=== PATIENT | male | born 2000 | race Caucasian/White ===

== ENCOUNTER 2023-04-28 14:37 | Emergency (ER) | payer OTHER, SELFPAY ==
[2023-04-28 14:54] VITALS: BP 147/81; PULSE 85; RESP 19; TEMP 36.6; O2SAT 98; BMI 30.7
--- NOTE | 2023-04-28 14:56 | ED.GENADULT ---
HPI - General Adult General Chief complaint: General Medical Stated complaint: sent for rabies vaccine Time Seen by Provider: 04/28/23 14:59 Source: patient Mode of arrival: ambulatory Limitations: no limitations History of Present Illness HPI narrative: 22-year-old male previously healthy here with concerns that he would need rabies vaccination. patient reports last evening a bat flew into the right side of his head. He is unsure if there was any bite or abrasions. Related Data Allergies Allergy/AdvReac Type Severity Reaction Status Date / Time latex [LATEX] Allergy Unknown RASH Verified 04/28/23 14:54 Review of Systems Review of Systems: Yes all other systems are reviewed and are negative Constitutional: Constitutional: Reports no additional constitutional complaints, Denies body ache(s), Denies chills, Denies fever(s), Denies headache(s) and Denies weakness Eyes: Eyes: Reports no additional eye complaints and Denies change in vision ENT: Reports system reviewed and no additional complaints, except as documented, Denies dizziness, Denies headache(s), Denies nasal congestion, Denies nasal discharge and Denies neck pain Cardiovascular: Cardiovascular: Reports no additional cardiovascular complaints, Denies chest pain, Denies leg edema and Denies dyspnea Respiratory: Respiratory: Reports no additional respiratory complaints, Denies cough and Denies dyspnea Gastrointestinal: Gastrointestinal: Reports no additional gastrointestinal complaints, Denies abdominal pain, Denies diarrhea, Denies nausea and Denies vomiting Genitourinary: Genitourinary: Denies urinary incontinence Musculoskeletal: Musculoskeletal: Reports no additional musculoskeletal complaints, Denies back pain, Denies arthralgias, Denies joint swelling, Denies neck pain, Denies numbness and Denies tingling Integumentary/Breasts: Skin/Breast: Reports system reviewed and no additional complaints, except as docu and Denies rash Neurologic: Reports system reviewed and no additional complaints, except as documented, Denies Abnormal speech present, Denies dizziness, Denies headache(s), Denies numbness, Denies tingling and Denies weakness PMFSH Past Medical History Attestation statement: The following information was validated with the patient. Source: old records reviewed and nursing notes reviewed Social History Social History Advance Directives: No Advance Directives Information Provided: No Physical Exam ED Vital Signs: Vital Signs - 24 hr 04/28/23 14:54 Temperature 98 F Pulse Rate 85 Respiratory Rate 19 Blood Pressure 147/81 H Pulse Oximetry 98 Oxygen Delivery Method Room Air BMI result Body Mass Index 30.7 Const General: cooperative, healthy appearing, comfortable and no acute distress Orientation/consciousness: patient oriented x3 Limitations: no limitations HENMT Other: I combed through the patient's hair. I do not appreciate any abrasions or bite garcia at all Head: Yes normal to inspection Ears: hearing grossly normal bilaterally General nose exam: Normal external nose present Face and sinus: Yes normal facial exam Mouth: Normal oral and palatal mucosa present Throat: Yes posterior oropharynx normal Eyes General: appearance normal, both eyes and all related structures Pupils: Equal, round and reactive pupils present Neck Neck: Yes normal visual inspection Chest Chest palpation & inspection: normal inspection of the chest Resp Effort & Inspection: normal respiratory effort Auscultation: clear to auscultation bilaterally Cardio Rate: regular rate Rhythm: regular rhythm Peripheral pulses: Peripheral pulses 2+ throughout GI Inspection: Yes normal to inspection Palpation (GI): Soft to palpation and nontender Auscultation: normal bowel sounds Back/Spine/Pelvis Thoracic/Lumbar Spine: thoracic and lumbar spine normal to inspection Skin General skin exam: no rashes or lesions noted Neuro General: patient oriented x3, no focal motor deficits and normal sensation to monofilament Cranial nerves: Yes Equal, round and reactive pupils present Cognition (Neuro): normal cognition Speech: No Abnormal speech present Gait exam (Neuro): Normal gait present Motor exam (neuro): 5/5 motor strength present throughout Extrem General: Yes normal to inspection Course Course Course Narrative: RME - 22 yo male presents for initiation of rabies series. Last night around 8pm a bat flew into the right side of his head. No open wounds or visible bites. PCP recommended he come to the ER for rabies vaccine. Plan: rabies vax and immuneglobulin Medications Administered Discontinued Medications Generic Name Dose Route Start Last Admin Trade Name Freq PRN Reason Stop Dose Admin Rabies Immune Globulin 2,000 unit 04/28/23 14:57 04/28/23 15:13 Rabies Immune Globulin/Pf 900 Unit/3 Ml Vial 20 unit/kg (2000 unit) 04/28/23 14:58 2,000 unit IM Administration ONCE ONE Rabies Vaccine Human Diploid Cell 1 ml 04/28/23 14:57 04/28/23 15:14 Rabies Vaccine, Human Diploid (Imovax) 1 Ml Vial IM 04/28/23 14:58 1 ml .ONCE ONE Administration Medical Decision Making Medical Decision Making MDM Narrative: 22-year-old male previously healthy here with concerns that he would need rabies vaccination. patient reports last evening a bat flew into the right side of his head. He is unsure if there was any bite or abrasions. from triage the rabies vaccine and immunoglobulin were ordered Differential Diagnosis Differential Diagnoses: The differential diagnosis associated with the presentation includes rabies exposure Independent Historian Clinical information obtained from an independent historian. History obtained from or confirmed by: Friend Prescription Management I considered prescription management with: Antibiotic Discharge Plan Discharge Clinical Impression: Rabies Patient Disposition: Home, Self-Care Instructions: Rabies (ED) Additional Instructions: see the dosing schedule for your repeat vaccinations
--- NOTE | 2023-04-28 15:24 | PC.NURSE ---
pt medicated per SEP VIS provided for rabavert- rabies order set faxed to [facility] and Pharmacy- confirmations received, filed in blue binder
== END 2023-04-28 15:29 | disposition home or self-care (01) ==
PROVIDERS: Emergency Provider Emergency Medicine Emergency Medical Services; PCP Pediatrics
DX: Z20.3 Contact with and (suspected) exposure to rabies (principal)
CPT/HCPCS: 90375; 90471; 90675; 96372; 99282; 99284

== ENCOUNTER 2023-05-01 15:19 | Outpatient (REF) | payer OTHER, SELFPAY | END 2023-05-01 15:20 | disposition home or self-care (01) | LOC: HO.MDS 15:19 | PROVIDERS: Visit Provider Nurse Practitioner Family | DX: Z20.3 Contact with and (suspected) exposure to rabies (principal) | CPT/HCPCS: 90471; 90675 ==

== ENCOUNTER 2023-05-05 10:02 | Outpatient (REF) | payer OTHER, SELFPAY | END 2023-05-05 10:03 | disposition home or self-care (01) | LOC: HO.MDS 10:02 | PROVIDERS: PCP Pediatrics; Visit Provider Nurse Practitioner Family | DX: Z20.3 Contact with and (suspected) exposure to rabies (principal) | CPT/HCPCS: 90471; 90675 ==

== ENCOUNTER 2023-05-12 10:07 | Outpatient (REF) | payer OTHER, SELFPAY | END 2023-05-12 10:08 | disposition home or self-care (01) | LOC: HO.MDS 10:07 | PROVIDERS: Visit Provider Nurse Practitioner Family | DX: Z20.3 Contact with and (suspected) exposure to rabies (principal) | CPT/HCPCS: 90471; 90675 ==

== ENCOUNTER 2024-02-02 17:54 | Emergency (ER) | payer OTHER, SELFPAY ==
[2024-02-02 18:21] VITALS: BP 130/88; PULSE 87; RESP 18; TEMP 36.3; O2SAT 97; BMI 27.9
[2024-02-02 18:46] LABS: Basophils Percent Auto 0.4 % (0-2); Eosinophils Percent Auto 0.4 % (0-4); Hematocrit 44.5 % (42.0-52.0); Hemoglobin 16.4 g/dl (14.0-18.0); Imm Gran Abs Auto 0.07 X10*3/uL (0.00-0.03); Imm Gran Pct Auto 0.8 % (0.0-0.4); Lymphocytes Absolute Auto 1.8 X10*3/uL (1.2-4.9); Lymphocytes Percent Auto 20.1 % (20-40); MANUAL DIFF FLAG NO; Mean Corpuscular HGB Conc 36.9 g/dl (31.0-36.0); Mean Corpuscular Hemoglobin 31.1 pg (27.0-33.0); Mean Corpuscular Volume 84.3 fL (80.0-98.0); Mean Platelet Volume 9.2 fL (9.4-12.4); Monocytes Absolute Auto 0.7 X10*3/uL (0.1-1.2); Monocytes Percent Auto 7.5 % (2-11); Neutrophils Absolute Auto 6.4 x10*3/uL (2.0-8.3); Neutrophils Percent Auto 70.8 % (45-73); Platelet Count 362 X10*3/uL (160-400); Red Blood Count 5.28 X10*6/uL (4.60-5.80); Red Cell Distribution Width 12.7 % (11.0-16.0); White Blood Count 9.1 X10*3/uL (4.8-10.8)
[2024-02-02 19:03] LABS: Alanine Aminotransferase 53 U/L (0-40); Alkaline Phosphatase 60 U/L (39-117); Anion Gap 16 (12-20); Aspartate Amino Transferase 26 U/L (5-37); Bilirubin Direct 0.2 mg/dL (0.0-0.5); Bilirubin Total 0.6 mg/dL (0.0-1.0); Blood Urea Nitrogen 7 mg/dL (9-16); Calcium 10.4 mg/dL (8.4-10.2); Carbon Dioxide 27 mmol/L (22-29); Chloride 101 mmol/L (96-108); Creatinine Clr Calc Pharmacy 148.7; Estimated Glomerular Filt Rate > 60; Glucose Random 83 mg/dL (60-115); Lipase 13 U/L (8-78); Potassium 3.9 mmol/L (3.3-5.1); Sodium 140 mmol/L (135-145); Total Protein 7.7 g/dL (6.5-8.0)
--- NOTE | 2024-02-02 21:43 | ED_ITS ---
HPI - Abdominal Pain General Chief Complaint: Abdominal Pain Stated Complaint: Abdominal pain Time Seen by Provider: 02/02/24 21:27 Source: patient Mode of arrival: ambulatory Limitations: no limitations History of Present Illness ED Provider: Dr. Capri Miranda HPI narrative: Patient comes to the emergency room with several complaints, patient states that for several days he has been having diarrhea, has not taking any medication [id number]. Patient states that he feels a lump in the rectal area, does not hurt, does not itch, no rectal bleeding. Also complaining of anxiety. Patient states that he has been having abdominal pain intermittently. At this time patient has no abdominal pain at all, no nausea vomiting or diarrhea. Patient denies SI or HI Related Data Previous Rx's ?Medication ?Instructions ?Recorded hydroxyzine HCl 25 mg tablet 25 mg PO QID PRN nausea and 02/02/24 vomiting #20 tabs hyoscyamine sulfate 0.125 mg tablet 0.125 mg PO QID PRN dyspepsia #10 02/02/24 tabs loperamide 2 mg capsule (Imodium 2 mg PO Q4H PRN loose stool #20 02/02/24 A-D) caps Allergies Allergy/AdvReac Type Severity Reaction Status Date / Time latex [LATEX] Allergy Unknown RASH Verified 02/02/24 18:24 Review of Systems Review of Systems Constitutional : No Weight loss, No Fever, No Chills, No Night Sweats, No Fatigue, No Malaise ENT/Mouth : No Hearing loss, No Ear Pain, No Nasal Congestion, No Sinus Pain, No Hoarseness, No sore throat, No Rhinorrhea, No Swallowing Difficulty Eyes: No Eye Pain, No Swelling, No Redness, No Foreign Body, No Discharge, No Vision Changes Cardiovascular : No Chest Pain, No SOB, No Dyspnea on Exertion, No Orthopnea, No Edema, No Palpitations Respiratory : No Cough, No Sputum, No Wheezing, No Smoke Exposure, No Dyspnea Gastrointestinal : Denies nausea or vomiting, complaining of diarrhea, a small rectal lump Genitourinary : no irregular bleeding, No Dysuria, No Urinary Frequency, No Hematuria, No Urinary Incontinence, No Urgency, No Flank Pain, No Urinary Flow Changes, No Hesitancy Musculoskeletal : No joint pain, No Myalgias, No Joint Swelling Skin : No Skin Lesions, No rash Neuro : No Weakness, No Numbness, No Paresthesias, No Loss of Consciousness, No Dizziness, No Headache Psych : Complaining of anxiety, No Depression, No SI/HI/AH/VH, No Social Issues, Heme/Lymph: No Bruising, No Bleeding,No Lymphadenopathy Endocrine : No Polyuria, No Polydipsia, No Temperature Intolerance [facility] Past Medical History Medical History (Updated 02/02/24 @ 21:47 by Capri Miranda MD) Anxiety Social History Social History Advance Directives: No Advance Directives Information Provided: No Do you have a plan to hurt others: No Plan Physical Exam ED Vital Signs: Vital Signs - 24 hr 02/02/24 18:21 Temperature 97.3 F Pulse Rate 87 Respiratory Rate 18 Blood Pressure 130/88 Pulse Oximetry 97 Oxygen Delivery Method Room Air BMI result Body Mass Index 27.9 Const Other: Appearance: Alert. Oriented X3. No acute distress. Eyes: Pupils equal, round and reactive to light. ENT: Pharynx normal. Neck: Normal inspection. Neck supple. No lymph nodes noted. No crepitus CVS: Normal heart rate and rhythm. Pulses normal. Normal S1 and S2 Respiratory: No respiratory distress. Breath sounds normal. No Wheezing. No rales Abdomen: Soft and nontender. No rigidity. No distention. No rebound, no guarding. Rectal exam: No internal or external hemorrhoids, no palpated lump Skin: Skin warm and dry. Normal skin color. Normal skin turgor. Extremities: No lower extremity edema. No Lacerations. No Rash Neuro: Oriented X 3. No motor deficit. No sensory deficit. Moving all extremities. No slurred speech. CN 2 through 12 grossly intact Psych: calm, cooperative, normal affect Medical Decision Making Medical Decision Making [facility] Narrative: -my interpretation of labs: Normal hematology chemistry, normal LFTs and lipase. -physical exam is normal. -vitals stable, patient feels well to go home. Differential Diagnosis Differential Diagnoses: The differential diagnosis associated with the presentation includes (Gastritis, enteritis, hemorrhoids, anxiety) Lab Data [facility] Lab Attestation statement: I reviewed the patient's lab results. 02/02/24 18:39 02/02/24 18:39 Labs: Lab Results 02/02/24 Range/Units 18:39 WBC 9.1 (4.8-10.8) X10*3/uL RBC 5.28 (4.60-5.80) X10*6/uL Hgb 16.4 (14.0-18.0) g/dl Hct 44.5 (42.0-52.0) % MCV 84.3 (80.0-98.0) fL MCH 31.1 (27.0-33.0) pg MCHC 36.9 H (31.0-36.0) g/dl RDW 12.7 (11.0-16.0) % Plt Count 362 (160-400) X10*3/uL MPV 9.2 L (9.4-12.4) fL Immature Gran % (Auto) 0.8 H (0.0-0.4) % Neut % (Auto) 70.8 (45-73) % Lymph % (Auto) 20.1 (20-40) % [place] % (Auto) 7.5 (2-11) % Eos % (Auto) 0.4 (0-4) % Baso % (Auto) 0.4 (0-2) % Lymph # (Auto) 1.8 (1.2-4.9) X10*3/uL [place] # (Auto) 0.7 (0.1-1.2) X10*3/uL Eos # (Auto) 0.0 (0.0-0.4) X10*3/uL Baso # (Auto) 0.0 (0.0-0.2) X10*3/uL Abs Immat Gran (auto) 0.07 H (0.00-0.03) X10*3/uL Absolute Neuts (auto) 6.4 (2.0-8.3) x10*3/uL Absolute Nucleated RBC 0.000 (0.0-0.012) X10*3/uL Nucleated RBC % (auto) 0.0 (0.0-0.2) /100WBC Sodium 140 (135-145) mmol/L Potassium 3.9 (3.3-5.1) mmol/L Chloride 101 (96-108) mmol/L Carbon Dioxide 27 (22-29) mmol/L Anion Gap 16 (12-20) BUN 7 L (9-16) mg/dL Creatinine 0.89 (0.5-1.4) mg/dL Estim Creat Clear Calc 148.7 Estimated GFR > 60 Random Glucose 83 (60-115) mg/dL Calcium 10.4 H (8.4-10.2) mg/dL Total Bilirubin 0.6 (0.0-1.0) mg/dL Direct Bilirubin 0.2 (0.0-0.5) mg/dL AST 26 (5-37) U/L ALT 53 H (0-40) U/L Alkaline Phosphatase 60 (39-117) U/L Total Protein 7.7 (6.5-8.0) g/dL Albumin 5.0 (3.5-5.0) g/dL Lipase 13 (8-78) U/L Discharge Plan Discharge Clinical Impression: Enteritis, Anxiety Patient Disposition: Home, Self-Care Instructions: Acute Diarrhea (ED), Anxiety (ED) Additional Instructions: Please follow-up with your primary care physician tomorrow. If you have any worsening or new symptoms, please return to the emergency room or call 911 Prescriptions: New loperamide [Imodium A-D] 2 mg capsule 2 mg PO Q4H PRN (Reason: loose stool) Qty: 20 0RF Rx Instructions: administer after each loose stool until symptoms controlled; do not exceed 8 mg per 24 hrs hyoscyamine sulfate 0.125 mg tablet 0.125 mg PO QID PRN (Reason: dyspepsia) Qty: 10 0RF hydroxyzine HCl 25 mg tablet 25 mg PO QID PRN (Reason: nausea and vomiting) Qty: 20 0RF Rx Instructions: P.r.n. anxiety Print Language: Montenegrin
[2024-02-02] MEDS: Loperamide HCl 2 MG CAPSULE 4 MG PO (22:07)
[2024-02-02 22:08] VITALS: BP 126/79; PULSE 73; RESP 18; TEMP 36.9; O2SAT 96
[2024-02-02 22:20] VITALS: BP 126/79; PULSE 73; RESP 18; TEMP 36.9; O2SAT 96
== END 2024-02-02 22:20 | disposition home or self-care (01) ==
PROVIDERS: Emergency Provider Emergency Medicine; PCP Pediatrics
DX: K52.9 Noninfective gastroenteritis and colitis, unspecified (principal); F41.9 Anxiety disorder, unspecified
CPT/HCPCS: 36415; 80048; 80076; 83690; 85025; 99283

== ENCOUNTER 2024-02-06 13:29 | Emergency (ER) | payer OTHER, SELFPAY | END 2024-02-06 14:34 | disposition left against medical advice (07) | PROVIDERS: Emergency Provider Emergency Medicine | DX: F41.9 Anxiety disorder, unspecified (principal); Z53.21 Procedure and treatment not carried out due to patient leaving prior to being seen by health care provider ==

== ENCOUNTER 2025-04-20 22:29 | Emergency (ER) | payer OTHER, SELFPAY ==
--- NOTE | ~2025-04-20 | XR_ITS ---
CLINICAL HISTORY: pain constipation 1 view abdomen Comparison: None provided Findings: No pneumoperitoneum or pneumatosis. Mild diffuse fecal retention. No abnormal calcifications. No acute fractures. IMPRESSION: Mild diffuse fecal retention. No small bowel obstruction or free air. This document has been electronically signed by: Wyatt Mckeon MD on 04/21/2025 07:44:31
[2025-04-20 22:32] VITALS: BP 130/80; PULSE 90; O2SAT 10
[2025-04-20 22:40] VITALS: BP 132/65; PULSE 80; RESP 16; TEMP 36.8; O2SAT 97; BMI 27.8
[2025-04-20 22:56] LABS: MANUAL DIFF FLAG NO
[2025-04-20 22:58] LABS: Hematocrit 38.3 % (42.0-52.0); Hemoglobin 13.8 g/dl (14.0-18.0); Imm Gran Abs Auto 0.02 X10*3/uL (0.00-0.03); Imm Gran Pct Auto 0.2 % (0.0-0.4); Lymphocytes Absolute Auto 2.6 X10*3/uL (1.2-4.9); Mean Corpuscular HGB Conc 36.0 g/dl (31.0-36.0); Mean Corpuscular Hemoglobin 30.5 pg (27.0-33.0); Mean Corpuscular Volume 84.7 fL (80.0-98.0); NRBC Abs Auto 0.000 X10*3/uL (0.0-0.012); NRBC Pct Auto 0.0 /100WBC (0.0-0.2); Platelet Count 252 X10*3/uL (160-400); Red Blood Count 4.52 X10*6/uL (4.60-5.80); White Blood Count 9.2 X10*3/uL (4.8-10.8)
[2025-04-20 23:11] LABS: Alanine Aminotransferase 33 U/L (0-40); Albumin Level 4.8 g/dL (3.5-5.0); Alkaline Phosphatase 62 U/L (39-117); Anion Gap 16 (12-20); Aspartate Amino Transferase 22 U/L (5-37); Blood Urea Nitrogen 11 mg/dL (9-16); Calcium 9.3 mg/dL (8.4-10.2); Carbon Dioxide 29 mmol/L (22-29); Chloride 104 mmol/L (96-108); Creatinine Clr Calc Pharmacy 134.7; Estimated Glomerular Filt Rate > 60; Lipase 15 U/L (8-78); Potassium 3.9 mmol/L (3.3-5.1); Sodium 145 mmol/L (135-145); Total Protein 6.8 g/dL (6.5-8.0)
--- NOTE | 2025-04-21 02:42 | PC.NURSE ---
assumed care of pt, pt states he has had lower abd pain for several hours, 01/29. Pt states it is worse then any typical IBS px he has felt in the pat. did not tae any medications tonight and is no ton any regular medication for any GI issues. he is under the care of a GI Dr. for his IBS. Mom at bedside. denies fevers, n/v/d. regular bm and urine output per pt.
[2025-04-21 02:49] VITALS: BP 121/73; PULSE 72; RESP 18; TEMP 36.8; O2SAT 99
--- OUTSIDE RECORDS SUMMARY | 2025-04-21 02:59 | XMS_ITS | Clinical Summary ---
Author Organization [facility] Address [address] [address] Phone Care Team Providers Care Salesperson [employer] Name Role Phone Johanny Peters MD, PhD Unavailable [phone] Rommel Rose MD Primary Care Provider Allergies No known active allergies Medications lactobacillus rhamnosus, GG, (CULTURELLE) 10 billion cell capsuleIndicatio ns:Irritable bowel syndrome with both constipation and diarrhea,Failure to thrive in child or adolescent Take 1 capsule by mouth daily. 30 capsule 9 Active citalopram (CELEXA) 20 MG tablet Take 20 mg by mouth daily. Active multivitamin-Ca- iron-minerals 27-0.4 mg TabIndications:I rritable bowel syndrome with both constipation and diarrhea Take 1 tablet by mouth daily. 30 each 3 0 Active meclizine (ANTIVERT) 25 mg tablet Take 1 tablet (25 mg total) by mouth 3 (three) times a day as needed for dizziness. 20 tablet 1 Active Additional Information Patient not taking.Reported on 07/02/2023 Active Problems Problem Noted Date Diagnosed Date Vertigo 05/14/2021 Assessment & Plan (05/14/2021 1:25 AM EDT): He does not have any nystagmus currently, but feels off with heavy extremities. This may be related to medications given in the emergency department. ED discussed the case with neurology who felt that evaluation for posterior stroke or this being a herald symptom of MS would be warranted and suggested observation for MRI. Other possibility is that there are case reports of HLA-B27 and M ni re's disease. He has no hearing issues. We will treat presumptively for a stroke at this time with aspirin, atorvastatin. We will monitor him on telemetry and obtain MRI in the morning with gadolinium. We will obtain an echocardiogram with bubble study. 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 Family history of Rangel's esophagus 12/26/2018 Irritable bowel syndrome wit h both constipation and diarrhea 09/10/2018 Resolved Problems Problem Noted Date Diagnosed Date Resolved Date Worm 08/01/2019 05/14/2021 Epigastric pain 12/09/2018 05/14/2021 Chest pain 12/09/2018 05/14/2021 Failure to thrive in child or adolescent 09/10/2018 05/14/2021 Constipation 07/03/2018 05/14/2021 Malnutrition 06/02/2018 05/14/2021 Abdominal pain 05/29/2018 05/14/2021 Diarrhea 05/29/2018 05/14/2021 Family History Medical History Relation Comments Diabetes Father Heart failure Father Autism spectrum disorder Half-Brother HLA-B27 positive Mother Neurological disorder Mother Question of MS vs Fibromyalgia Relation Status Comments Father Half-Brother Alive Mother Alive Social History Tobacco Use Types Packs/Day Years Used Date Smoking Tobacco: Never Smokeless Tobacco: Never Tobacco Cessation:Counseling Given: Not Answered Alcohol Use Standard Drinks/Week Comments Never 0 (1 standard drink = 0.6 oz pur e alcohol) Education Answer Date Recorded Are you interested in more education? Not on alfonso e 11/17/2022 Are you concerned about learning? Not on file 11/17/2022 No 11/17/2022 No 11/17/2022 Digital Access Answer Date Recorded No 12/18/2022 No 12/18/2022 Reliable internet access at home? Not on file 12/18/2022 Device with a working camera? Not on file Sex and Gender Information Value Date Recorded Sex Assigned at Male 09/14/2019 11:42 AM EST Legal Sex Male 8:46 PM EDT Gender Identity Male 09/14/2019 11:42 AM EST Sexual Orientation Not on file Occupation Industry Job Start Date Job End Date [employer] Not on file Not on file Not on file Last Filed Vital Signs Vital Sign Reading Time Taken Comments Blood Pressure 126/80 07/02/2023 6:45 PM EST Pulse 89 07/02/2023 6:45 PM EST Temperature 36.3 C (97.3 F) 07/02/2023 6:45 PM EST Respiratory Rate 20 07/02/2023 6:45 PM EST Oxygen Saturation 97% 07/02/2023 6:45 PM EST Inhaled Oxygen Concentration - - Weight 99.8 kg (220 lb) 07/02/2023 6:45 PM EST Height 180.3 cm (5' 11 ) 07/02/2023 6:45 PM EST Body Mass Index 30.68 07/02/2023 6:45 PM EST Plan of Treatment Health Maintenance Due Date Last Done Comments DEPRESSION SCREENING 2012 SMOKING Hx and SMOKELESS TOBACCO SCREENING 2013 HEPATITIS C SCREENING 2018 INFLUENZA VACCINE (#1) 2025 , 08/01/2019, 07/29/2018 COVID-19 VACCINE (2 - 2024-2 6 season) 2025 11/07/2021 Adult Td,Tdap Booster 05/07/2033 05/07/2023 HPV VACCINES Completed 03/12/2017, 09/12/2016, 07/11/2016 MENINGOCOCCAL VACCINES (ACWY) Completed 07/09/2017 HIV ONE-TIME SCREENING (18-6 5 YEARS) Completed 11/11/2020 HEPATITIS A VACCINES Aged Out 05/07/2023, 08/01/2019 No longer eligible based on patient's age to complete this topic HIB VACCINES Aged Out No longer eligi ble based on patient's age to complete this topic MENINGOCOCCAL VACCINES (B) Aged Out N o longer eligible based on patient's age to complete this topic PNEUMOCOCCAL VACCINES (0-49 years) Aged Out No longer eligible b ased on patient's age to complete this topic Medical Devices Not on file [place] [address] [address] [place] [address] [employer] [place] [address] [place] [address] [employer] ACO ACO Advance Directives For more information, please contact: [phone] (9AM - 5PM [place], Sunday-Sunday) * Full Code (Latest Code Status on File) Date Activated Date Inactivated Comments 05/14/2021 1:48 AM Question Answer Comments Code Status Confirmed With: Patient Care Teams Salesperson [employer] Relationship Specialty Start Date End Date Rommel Rose MD [address] [place] [address], [facility] [address] [place] [address] [email or web address] PCP - General Pediatrics 07/02/23 Johanny Peters MD, PhD [email or web address] Pediatric Rheumatology 07/08/18 Additional Source Comments The information contained in this document represents components of the legal health record. It is not the complete legal health record.[facility]
--- OUTSIDE RECORDS SUMMARY | 2025-04-21 02:59 | XMS_ITS | Encounter Summary ---
Author Organization [facility] Address [address] [place] [address] [place] [phone] Phone Care Team Providers Care Therapist Name Role Phone Johanny Peters MD, PhD Unavailable [phone] Rommel Rose MD Primary Care Provider [phone] Rommel Rose MD Primary Care Provider [phone] Encounter Details Date Type Department Care Team (Late st Contact Info) Description 05/14/2021 Procedure Pass [address] [id number] Social History Tobacco Use Types Packs/Day Years Used Date Smoking Tobacco: Never Smokeless Tobacco: Never Alcohol Use Standard Drinks/Week Comments Never 0 (1 standard drink = 0.6 oz pur e alcohol) Sex and Gender Information Value Date Recorded Sex Assigned at Male 09/14/2019 11:42 AM EST Legal Sex Male 8:46 PM EDT Gender Identity Male 09/14/2019 11:42 AM EST Sexual Orientation Not on file Occupation Industry Job Start Date Job End Date [employer] Not on file Not on file Not on file documented as of this encounter Plan of Treatment Not on file documented as of this encounter Visit Diagnoses Not on filedocumented in this encounter Care Teams Therapist Relationship Specialty Start Date End Date Rommel Rose MD [address] [place] [address] [address] [place] [address] [email or web address] PCP - General Pediatrics 09/10/18 07/01/23 Rommel Rose MD [address] [place] [address] [address] [place] [address] [email or web address] PCP - General Pediatrics 07/02/23 Johanny Peters MD, PhD [email or web address] Pediatric Rheumatology 07/08/18 documented as of this encounter Additional Source Comments The information contained in this document represents components of the legal health record. It is not the complete legal health record.[facility]
--- OUTSIDE RECORDS SUMMARY | 2025-04-21 02:59 | XMS_ITS | Encounter Summary ---
Author Organization [facility] Address [address] [employer] [place] [address] [place] [address] Phone Care Team Providers Care Line Welder Name Role Phone Rommel Rose MD Primary Care Provider Johanny Peters MD, PhD Primary Care Provider + Rommel Rose MD Primary Care Provider Johanny Peters MD, PhD Unavailable [phone] Kelly Dash MD Primary Care Provider [phone] Rommel Rose MD Primary Care Provider Rommel Rose MD Primary Care Provider Encounter Details Date Type Department Care Team (Late st Contact Info) Description 07/09/2017 Ancillary Orders [facility], X-Ray - [address] [place] [address] Rommel Rose MD [address] [place] [address], [address] [place] [address] [email or web address] Low back pain without sciatica, unspecified back pain laterality, unspecified chronicity Social History Tobacco Use Types Packs/Day Years Used Date Smoking Tobacco: Never Assessed Sex and Gender Information Value Date Recorded Sex Assigned at Male 09/14/2019 11:42 AM EST Legal Sex Male 8:46 PM EDT Gender Identity Male 09/14/2019 11:42 AM EST Sexual Orientation Not on file documented as of this encounter Plan of Treatment Not on file documented as of this encounter Results * XR LUMBOSACRAL SPINE 2-3 VIEWS (07/09/2017 4:20 PM EST) Anatomical Region Laterality Modality L-spine Radiographic Tessa ging 07/09/2017 5:49 PM EST Impressions 07/09/2017 6:21 PM EST Low normal disc heights. No evidence of spondylolisthesis or bony lesion. POS - [id number] Edited by: Alicia Watters on 07/09/2017 6:01 PM Narrative 07/09/2017 6:21 PM EST AP, lateral, and cone-down lateral views of the lumbar spine obtained. Disc heights are low normal throughout with perhaps mild disc height loss at L4- 5. No compression deformity. No spondylolisthesis. No bony lesions identified. Procedure Note Chano Cruz MD - 07/09/2017 AP, lateral, and cone-down lateral views of the lumbar spine obtained.Disc heights are low normal throughout with perhaps mild disc height lossat L4-5. No compression deformity. No spondylolisthesis. No bonylesions identified. IMPRESSION: Low normal disc heights. No evidence of spondylolisthesis or bonylesion. POS - [id number] Edited by: Alicia Watters on 07/09/2017 6:01 PM Rommel Rose MD IMG XR SPINE Final Resul t documented in this encounter Visit Diagnoses Diagnosis Low back pain without sciatica, unspecified back pain laterality, unspecified chronicity Low back pain without sciatica, unspecified back pain laterality, unspecified chronicity documented in this encounter Care Teams Line Welder Relationship Specialty Start Date End Date Rommel Rose MD [address] [place] [address] 2 [place] [address] [email or web address] PCP - General Pediatrics 07/09/17 11/29/17 Johanny Peters MD, PhD [address] [place] [address] [email or web address] PCP - General Pediatric Rheumatology 11/30/17 05/28/18 Rommel Rose MD [address] [place] [address] [email or web address] PCP - General Pediatrics 05/29/18 08/19/18 Kelly Dash MD [address] [place] [address] PCP - General Pediatrics 08/20/18 09/09/18 Rommel Rose MD [address] [place] [address] [email or web address] PCP - General Pediatrics 09/10/18 07/01/23 Rommel Rose MD [address] [place] [address] [email or web address] PCP - General Pediatrics 07/02/23 Johanny Peters MD, PhD [address] [place] [address] [email or web address] Pediatric [email or web address] 07/08/18 documented as of this encounter Additional Source Comments The information contained in this document represents components of the legal health record. It is not the complete legal health record.[facility]
--- OUTSIDE RECORDS SUMMARY | 2025-04-21 02:59 | XMS_ITS | Encounter Summary ---
Author Organization [facility] Address [address] [place] [address] Phone Care Team Providers Care Screw Machine Operator Name Role Phone Rommel Rose MD Primary Care Provider Johanny Peters MD, PhD Primary Care Provider + Rommel Rose MD Primary Care Provider Johanny Peters MD, PhD Unavailable Kelly Dash MD Primary Care Provider [phone] Rommel Rose MD Primary Care Provider Rommel Rose MD Primary Care Provider Encounter Details Date Type Department Care Team (Late st Contact Info) Description 07/09/2017 Transcribe Orders [address] [place] [address] Rommel Rose MD [address] [place] [address], [facility] 2 [place] [address] [email or web address] 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 Approximately 8% of the normal population carries the HLA-B27 antigen. HLA-B27 is present in approximately 89% of patients with ankylosing spondylitis, 79% of patients with Janet's syndrome and 42% of patients with juvenile rheumatoid arthritis. However, lacking other data, it is not diagnostic for these disorders. This test does not differentiate B27 alleles. i.e. B*27:05, B*27:06, etc. ADDITIONAL INFORMATION Method: Flow Cytometry Performing Laboratory CLIA# [id number] Blood 07/09/2017 4:50 PM EST 07/09/2017 4:55 PM EST Rommel Rose MD LAB BLOOD ORDERABLES Final Result [facility] DPT OF LAB MED AND PAT+ [address] [place] [address] * Sedimentation rate (ESR) (07/09/2017 4:50 PM EST) ESR 1 0 - 15 mm/h [facility] Blood 07/09/2017 4:50 PM EST 07/09/2017 4:56 PM EST Rommel Rose MD LAB BLOOD ORDERABLES Final Result [facility] [address] [place] [address] * Immunoglobulin A (07/09/2017 4:50 PM EST) IgA 89 61 - 348 mg/dL [facility] Blood 07/09/2017 4:50 PM EST 07/09/2017 4:56 PM EST Rommel Rose MD LAB BLOOD ORDERABLES Final Result Performing Organization Address City/[facility]/ZIP Co de Phone Number [facility] [address] [place] [address] * (ABNORMAL) Tissue transglutaminase IgA (07/09/2017 4:50 PM EST) Pathologist [facility] TTG IGA ANTIBODY 18.8(H) <4.0 (Negative) U/mL [facility] DPT OF LAB MED AND PAT+ Comment: (NOTE) Interpretation: Positive (>10.0) Blood 07/09/2017 4:50 PM EST 07/09/2017 4:55 PM EST Rommel Rose MD LAB BLOOD ORDERABLES Final Result [facility] DPT OF LAB MED AND PAT+ [address] [place] [address] * CBC and differential (07/09/2017 4:50 PM EST) [facility] WBC 5.21 3.40 - 11.20 K/uL [facility] RBC 4.84 4.50 - 5.50 M/uL [facility] HGB 14.9 13.0 - 17.0 g/dL [facility] HCT 41.8 40.0 - 51.0 % [facility] PLT 199 130 - 400 K/uL [facility] MCV 86.4 79.0 - 98.0 fL [facility] MCH 30.8 27.0 - 34.8 pg [facility] MCHC 35.6 31.5 - 36.0 g/dL [facility] RDW 13.0 10.8 - 14.6 % [facility] MPV 10.0 9.4 - 12.4 fl [facility] NRBC 0.00 /100 WBCs [facility] ABSOLUTE NRBC 0.00 K/uL [facility] DIFF METHOD Auto [facility] NEUTS 56.3 45.30 - 77.70 % [facility] LYMPHS 34.2 12.30 - 39.70 % [facility] MONOS 7.5 4.10 - 12.80 % [facility] EOS 1.2 0 - 7.2 % [facility] BASOS 0.8 0 - 2.80 % [facility] Granulocytes, immature (%) 0.0 0.0 - 0.9 % [facility] ABSOLUTE NEUTS 2.94 1.40 - 7.70 K/uL [facility] ABSOLUTE LYMPHS 1.78 0.60 - 3.20 K/uL [facility] ABSOLUTE MONOS 0.39 0.11 - 0.59 K/uL [facility] ABSOLUTE EOS 0.06 0.01 - 0.50 K/uL [facility] ABSOLUTE BASOS 0.04 0.00 - 0.08 K/uL [facility] Granulocytes, immature 0.00 0.00 - 0.05 K/uL [facility] Blood 07/09/2017 4:50 PM EST 07/09/2017 4:56 PM EST us Rommel Rose MD LAB BLOOD ORDERABLES Final Result Performing Organization Address City/State/[place] Co de Phone Number [facility] [address] [place] [address] * (ABNORMAL) Lipid panel (07/09/2017 4:50 PM EST) HDL 48 mg/dL [facility] Comment: Interpretation: Risk Level Males Decreased >45 mg/dL Average 40-45 mg/dL Increased <40 mg/dL CHOLESTEROL 98 0 - 169 mg/dL [facility] Comment: Pediatric Reference Ranges for 2 to 18 years Acceptable: Less than 170 mg/dL Borderline: 170 - 199 mg/dL High: Greater than or equal to 200 mg/dL TRIGLYCERIDES 35 30 - 160 mg/dL [facility] LDL 43(L) 50 - 129 mg/dL [facility] Comment: LDL levels in terms of risk for coronary heart disease: <100 mg/dL: Optimal 100-129 mg/dL: Near or above optimal 130-159 mg/dL: Borderline high 160-189 mg/dL: High >190 mg/dL: Very High CARDIAC RISK RATIO 2.0(L) 3.4 - 5.0 [facility] Blood 07/09/2017 4:50 PM EST 07/09/2017 4:56 PM EST us Rommel Rose MD LAB BLOOD ORDERABLES Final Result [facility] [address] [place] [address] documented in this encounter Visit Diagnoses Diagnosis Irritable bowel syndrome with both constipation and diarrhea- Primary documented in this encounter Care Teams Screw Machine Operator Relationship Specialty Start Date End Date Rommel Rose MD [address] [place] [address] [email or web address] PCP - General Pediatrics 07/09/17 11/29/17 Johanny Peters MD, PhD [address] [place] [address] [email or web address] PCP - General Pediatric Rheumatology 11/30/17 05/28/18 Rommel Rose MD [address] [place] [address] [email or web address] PCP - General Pediatrics 05/29/18 08/19/18 Kelly Dash MD [address] [place] [address] PCP - General Pediatrics 08/20/18 09/09/18 Rommel Rose MD [address] [place] [address] [email or web address] PCP - General Pediatrics 09/10/18 07/01/23 Rommel Rose MD [address] [place] [address] [email or web address] PCP - General Pediatrics 07/02/23 Johanny Peters MD, PhD [address] [place] [address] [email or web address] Pediatric Rheumatology 07/08/18 documented as of this encounter Additional Source Comments The information contained in this document represents components of the legal health record. It is not the complete legal health record.[facility]
--- OUTSIDE RECORDS SUMMARY | 2025-04-21 02:59 | XMS_ITS | Encounter Summary ---
Author Organization [facility] Address [address] [place] [address] [place] [address] Phone Care Team Providers Care Industry Analyst Name Role Phone Johanny Peters MD, PhD Unavailable [phone] Rommel Rose MD Primary Care Provider [phone] Rommel Rose MD Primary Care Provider [phone] Encounter Details Date Type Department Care Team (Late st Contact Info) Description 05/13/2021 Procedure Pass [facility], Ct Scan - [address] [address] Social History Tobacco Use Types Packs/Day Years [...] on file documented as of this encounter Functional Status * Calculated C-SSRS Risk Score (Lifetime/Recent) Answer Date of Assessment Author No Risk Indicated 05/13/2021 4:49 PM EDT Tavia Mclean, RN * [place]atz Suicide Severity Rating Scale (Screener/Recent Self-Report) Question Answer Date of Assessment Author 1. Wish to be (Past 1 Month) No 021 4:49 PM EDT Tavia Mclean, RN 2. Non-Specific Active Suici mariana Thoughts (Past 1 Month) No 05/13/2021 4:49 PM EDT Tavia Mclean, RN 6. Suicidal Behavior (Lifetime) No 4:49 PM EDT Tavia Mclean, RN documented as of this encounter Plan of Treatment Not on file documented as of this encounter Visit Diagnoses Not on filedocumented in this encounter Care Teams Industry Analyst Relationship Specialty Start Date End Date Rommel Rose MD [address] [place] [address] [email or web address] PCP - General Pediatrics 09/10/18 07/01/23 Rommel Rose MD [address] [place] [address] [email or web address] PCP - General Pediatrics 07/02/23 Johanny Peters MD, PhD [email or web address] Pediatric Rheumatology 07/08/18 documented as of this encounter Additional Source Comments The information contained in this document represents components of the legal health record. It is not the complete legal health record.[facility]
--- OUTSIDE RECORDS SUMMARY | 2025-04-21 02:59 | XMS_ITS | Encounter Summary ---
Author Organization [facility] Address [address] [place] [address] [place] [address] Phone Care Team Providers Care Supervisor Stripping Name Role Phone Johanny Peters MD, PhD Unavailable [phone] Rommel Rose MD Primary Care Provider [phone] Rommel Rose MD Primary Care Provider Encounter Details Date Type Department Care Team (Late st Contact Info) Description 01/03/2019 Procedure Pass [place] Admitting Dept - Virtual Department [address] [place] [address] Social History Tobacco Use Types Packs/Day Years [...] on filedocumented in this encounter Care Teams Supervisor Stripping Relationship Specialty Start Date End Date Rommel Rose MD [address] [facility] 2 [place] [address] [email or web address] PCP - General Pediatrics 09/10/18 07/01/23 Rommel Rose MD [address] [place] [address] 2 [place] [address] [email or web address] PCP - General Pediatrics 07/02/23 Johanny Peters MD, PhD [email or web address] Pediatric Rheumatology 07/08/18 documented as of this encounter Additional Source Comments The information contained in this document represents components of the legal health record. It is not the complete legal health record.[facility]
--- OUTSIDE RECORDS SUMMARY | 2025-04-21 02:59 | XMS_ITS | Encounter Summary ---
Author Organization [facility] Address [address] [place] [address] [place] [address] Phone Care Team Providers Care Car Repairer Apprentice Name Role Phone Johanny Peters MD, PhD Unavailable [phone] Rommel Rose MD Primary Care Provider Rommel Rose MD Primary Care Provider Encounter Details Date Type Department Care Team (Late st Contact Info) Description 01/09/2019 Ancillary Orders Virtual Department [address] [place] [address] Brandy Villagran MD [address] [facility] 2 [place] [address] [email or web address] Testicular pain Social History Tobacco Use Types Packs/Day Years [...] documented as of this encounter Results * US SCROTUM AND TESTICLES (01/10/2019 4:29 PM EDT) Anatomical Region Laterality Modality Pelvis, Scrotum/Testes, Testes U ltrasound 01/10/2019 10:0 3 PM EDT Impressions 01/10/2019 10:08 PM EDT 1. Normal sonographic appearance of both testicles. 2. Extratesticular bilateral calcifications, as seen on the prior study. POS [id number] Narrative 01/10/2019 10:08 PM EDT EXAM: US SCROTUM AND TESTICLES HISTORY: Testicular pain COMPARISON: August 25, 2015 TECHNIQUE: Sonographic evaluation of the scrotum. Color and pulsed wave Doppler ultrasound was used to assess testicular vasculature. FINDINGS: RIGHT TESTIS: The right testis measures 4.8 cm x 2.3 cm x 3.0 cm. There is normal testicular echotexture, without focal lesion. LEFT TESTIS: The left testis measures 4.5 cm x 1.9 cm x 3.2 cm. There is normal testicular echotexture, without focal lesion. VASCULAR: There are symmetric vascularity detected in both testes. EPIDIDYMIDES: Unremarkable. The right epididymal head measures 1.0 cm, and the left epididymal head measures 1.1 cm. SCROTUM: There is no varicocele or hydrocele. Redemonstration of extratesticular calcifications, on the right measures 0.9 cm and on the left measures 0.8 cm Procedure Note Jose Alfredo Mahajan MD - 01/10/2019 EXAM: US SCROTUM AND TESTICLES HISTORY: Testicular pain COMPARISON: August 25, 2015 TECHNIQUE: Sonographic evaluation of the scrotum. Color and pulsed waveDoppler ultrasound was used to assess testicular vasculature. FINDINGS: RIGHT TESTIS: The right testis measures 4.8 cm x 2.3 cm x 3.0 cm. Thereis normal testicular echotexture, without focal lesion. LEFT TESTIS: The left testis measures 4.5 cm x 1.9 cm x 3.2 cm. There isnormal testicular echotexture, without focal lesion. VASCULAR: There are symmetric vascularity detected in both testes. EPIDIDYMIDES: Unremarkable. The right epididymal head measures 1.0 cm, andthe left epididymal head measures 1.1 cm. SCROTUM: There is no varicocele or hydrocele. Redemonstration of extratesticular calcifications, on the right measures0.9 cm and on the left measures 0.8 cm IMPRESSION: 1. Normal sonographic appearance of both testicles. 2. Extratesticular bilateral calcifications, as seen on the priorstudy. POS [id number] us Brandy Villagran MD IMG US SCROTUM/PENIS Final R esult documented in this encounter Visit Diagnoses Diagnosis Testicular pain Unspecified disorder of male genital organs Testicular pain Unspecified disorder of male genital organs documented in this encounter Care Teams Car Repairer Apprentice Relationship Specialty Start Date End Date Rommel Rose MD [address] [place] [address] [email or web address] PCP - General Pediatrics 09/10/18 07/01/23 Rommel Rose MD [address] [place] [address] PCP - General Pediatrics 07/02/23 Johanny Peters MD, PhD [email or web address] Pediatric Rheumatology 07/08/18 documented as of this encounter Additional Source Comments The information contained in this document represents components of the legal health record. It is not the complete legal health record.[facility]
--- OUTSIDE RECORDS SUMMARY | 2025-04-21 02:59 | XMS_ITS | Encounter Summary ---
Author Organization [facility] Address [address] [place] [address] [place] [address] Phone Care Team Providers Care Traffic Ii Manager Name Role Phone Johanny Peters MD, PhD Primary Care Provider + Rommel Rose MD Primary Care Provider [phone] Johanny Peters MD, PhD Unavailable [phone] Kelly Dash MD Primary Care Provider Rommel Rose MD Primary Care Provider [phone] Rommel Rose MD Primary Care Provider [phone] Encounter Details Date Type Department Care Team (Late st Contact Info) Description 05/09/2018 Transcribe Orders [facility] [address] [place] [address] Rommel Rose MD 193 [facility] 2 [place], [place] [id number] Pruritus ani (Primary Dx) Social History Tobacco Use Types [...] documented as of this encounter Visit Diagnoses Diagnosis Pruritus ani- Primary documented in this encounter Care Teams Traffic Ii Manager Relationship Specialty Start Date End Date Johanny Peters MD, PhD [email or web address] PCP - General Pediatric Rheumatology 11/30/17 05/28/18 Rommel Rose MD [address] [place] [address] [email or web address] PCP - General Pediatrics 05/29/18 08/19/18 Kelly Dash MD [address] [place] [address] PCP - General Pediatrics 08/20/18 09/09/18 Rommel Rose MD [address] [place] [address] [email or web address] PCP - General Pediatrics 09/10/18 07/01/23 Rommel Rose MD [address] [place] [address] [email or web address] PCP - General Pediatrics 07/02/23 Johanny Peters MD, PhD [email or web address] Pediatric Rheumatology 07/08/18 documented as of this encounter Additional Source Comments The information contained in this document represents components of the legal health record. It is not the complete legal health record.[facility]
--- OUTSIDE RECORDS SUMMARY | 2025-04-21 02:59 | XMS_ITS | Encounter Summary ---
Author Organization [facility] Address [address] [place] [address] [place] [address] Phone Care Team Providers Care Rental Salesperson Name Role Phone Johanny Peters MD, PhD Unavailable [phone] Rommel Rose MD Primary Care Provider [phone] Rommel Rose MD Primary Care Provider Encounter Details Date Type Department Care Team (Late st Contact Info) Description 05/14/2021 Procedure Pass [facility] [address] [place], [place] [phone] Social History Tobacco Use Types Packs/Day Years [...] on filedocumented in this encounter Care Teams Rental Salesperson Relationship Specialty Start Date End Date Rommel Rose MD [address] [facility] 2 [place] [address] [email or web address] PCP - General Pediatrics 09/10/18 07/01/23 Rommel Rose MD [address] [place] [address], [facility] 2 [place] [address] [email or web address] PCP - General Pediatrics 07/02/23 Johanny Peters MD, PhD [email or web address] Pediatric Rheumatology 07/08/18 documented as of this encounter Additional Source Comments The information contained in this document represents components of the legal health record. It is not the complete legal health record.[facility]
--- OUTSIDE RECORDS SUMMARY | 2025-04-21 02:59 | XMS_ITS | Encounter Summary ---
Author Organization [facility] Address [address] [place] [address] [place] [phone] Phone Care Team Providers Care Sample Collector Name Role Phone Johanny Peters MD, PhD Unavailable [phone] Rommel Rose MD Primary Care Provider [phone] Rommel Rose MD Primary Care Provider Encounter Details Date Type Department Care Team (Late st Contact Info) Description 09/26/2019 Transcribe Orders Virtual Department [address] [place] [address] Rommel Rose MD [address] [facility] 2 [place] [address] [email or web address] Heart palpitations (Primary Dx) Social History Tobacco Use Types [...] documented as of this encounter Results * ECG 12-LEAD (10/06/2019 1:08 PM EDT) Ventricular Rate EKG/MIN 65 BPM [facility] Atrial Rate 65 BPM [facility] AL Interval 130 ms [facility] QRS Duration 90 ms [facility] QT Interval 388 ms [facility] QTC Interval 403 ms [facility] P [place] 70 degrees [facility] R Wave [place] 84 degrees [facility] T Wave [place] 67 degrees [facility] 10/06/2019 1:08 PM EDT 10/07/2019 7:47 AM EDT Narrative [facility] - 10/07/2019 7:47 AM EDT Normal sinus rhythm Normal ECG No previous ECGs available Confirmed by CHANO ELLIOTT DO ([id number]) on 10/07/2019 7:47:18 AM us Rommel Rose MD ECG ORDERABLES Final Resul t [facility] documented in this encounter Visit Diagnoses Diagnosis Heart palpitations- Primary Palpitations Heart palpitations Palpitations documented in this encounter Care Teams Sample Collector Relationship Specialty Start Date End Date Rommel Rose MD [address] [place] [phone] PCP - General Pediatrics 09/10/18 07/01/23 Rommel Rose MD [address] [place] [phone] PCP - General Pediatrics 07/02/23 Johanny Peters MD, PhD [email or web address] Pediatric Rheumatology 07/08/18 documented as of this encounter Additional Source Comments The information contained in this document represents components of the legal health record. It is not the complete legal health record.[facility]
--- OUTSIDE RECORDS SUMMARY | 2025-04-21 02:59 | XMS_ITS | Encounter Summary ---
Author Organization [facility] Address [address] [place] [address] [place] [address] Phone Care Team Providers Care Site Physician Name Role Phone Johanny Peters MD, PhD Unavailable [phone] Rommel Rose MD Primary Care Provider [phone] Rommel Rose MD Primary Care Provider [phone] Encounter Details Date Type Department Care Team (Late st Contact Info) Description 05/13/2021 Procedure Pass [facility], Ct Scan - [address] [address] Social History Tobacco Use Types Packs/Day Years [...] 4:49 PM EDT Tavia Mclean, RN * [place] Suicide Severity Rating Scale (Screener/Recent Self-Report) Question [...] on filedocumented in this encounter Care Teams Site Physician Relationship Specialty Start Date End Date Rommel Rose MD [address] [place] [phone] [email or web address] PCP - General Pediatrics 09/10/18 07/01/23 Rommel Rose MD [address] [place] [phone] [email or web address] PCP - General Pediatrics 07/02/23 Johanny Peters MD, PhD [email or web address] Pediatric Rheumatology 07/08/18 documented as of this encounter Additional Source Comments The information contained in this document represents components of the legal health record. It is not the complete legal health record.[facility]
--- OUTSIDE RECORDS SUMMARY | 2025-04-21 02:59 | XMS_ITS | Encounter Summary ---
Author Organization [facility] Address [address] [place] [phone] Phone Care Team Providers Care Process Assistant Name Role Phone Rommel Rose MD Primary Care Provider [phone] Johanny Peters MD, PhD Primary Care Provider + Rommel Rose MD Primary Care Provider Johanny Peters MD, PhD Unavailable [phone] Kelly Dash MD Primary Care Provider Rommel Rose MD Primary Care Provider Rommel Rose MD Primary Care Provider Reason for Referral * Physical Therapy (Routine) - Closed Specialty Diagnoses / Procedures Referred By Wilman soto Referred To Contact Physical Therapy System, Provider Not In, [facility] [address] [address] [facility] [address] [place] [address] Phone: tel: Referral ID Status Reason Start Date Expiration Date Visits Re quested Visits Authorized [id number] Closed 07/31/2017 07/31/2018 20 20 Encounter Details Date Type Department Care Team (Late st Contact Info) Description 07/31/2017 Transcribe Orders [facility] [address] [place] [address] Rommel Rose MD [address] [place] [phone] [email or web address] Social History Tobacco Use Types Packs/Day Years Used Date Smoking Tobacco: Never Assessed Sex and Gender Information Value Date Recorded Sex Assigned at Male 09/14/2019 11:42 AM EST Legal Sex Male 8:46 PM EDT Gender Identity Male 09/14/2019 11:42 AM EST Sexual Orientation Not on file documented as of this encounter Plan of Treatment Scheduled Referrals Name Type Priority Associated Diagnoses Order Schedule Ambulatory referral to [facility] Physical Therapy Outpatient Referral Routine Ordered: 07/31/2017 documented as of this encounter Visit Diagnoses Not on filedocumented in this encounter Care Teams Process Assistant Relationship Specialty Start Date End Date Rommel Rose MD [address] [place] [phone] [email or web address] PCP - General Pediatrics 07/09/17 11/29/17 Johanny Peters MD, PhD [address] [place] [phone] [email or web address] PCP - General Pediatric Rheumatology 11/30/17 05/28/18 Rommel Rose MD [address] [place] [phone] [email or web address] PCP - General Pediatrics 05/29/18 08/19/18 Kelly Dash MD [address] [place] [address] PCP - General Pediatrics 08/20/18 09/09/18 Rommel Rose MD [address] [place] [phone] [email or web address] PCP - General Pediatrics 09/10/18 07/01/23 Rommel Rose MD [address] [place] [phone] [email or web address] PCP - General Pediatrics 07/02/23 Johanny Peters MD, PhD [address] [place] [phone] [email or web address] Pediatric Rheumatology 07/08/18 documented as of this encounter Additional Source Comments The information contained in this document represents components of the legal health record. It is not the complete legal health record.[facility]
--- NOTE | 2025-04-21 05:34 | ED.GENADULT ---
HPI - General Adult General Chief complaint: Abdominal Pain Stated complaint: Abd pain, hx ibs Time Seen by Provider: 04/21/25 03:31 Source: patient Limitations: no limitations History of Present Illness ED Provider: Yecenia Wong PA-C HPI narrative: 24-year-old male with a history of IBS presents with suprapubic abdominal pain times 40 minutes. Pain described as cramping, denies nausea, vomiting, dysuria, hematuria, testicular pain swelling. Denies back pain or flank pain. Denies diarrhea or constipation. He states he had a bowel movement prior to coming into the emergency room. Related Data Previous Rx's ?Medication ?Instructions ?Recorded hydroxyzine HCl 25 mg tablet 25 mg PO QID PRN nausea and 02/02/24 vomiting #20 tabs hyoscyamine sulfate 0.125 mg tablet 0.125 mg PO QID PRN dyspepsia #10 02/02/24 tabs loperamide 2 mg capsule (Imodium 2 mg PO Q4H PRN loose stool #20 02/02/24 A-D) caps Allergies Allergy/AdvReac Type Severity Reaction Status Date / Time latex (LATEX) Allergy Unknown RASH Verified 04/20/25 22:42 adhesive Allergy Rash Verified 04/20/25 22:42 Review of Systems Review of Systems: Yes all other systems are reviewed and are negative Constitutional: Constitutional: Denies fatigue and Denies fever(s) Cardiovascular: Cardiovascular: Denies chest pain and Denies dyspnea Respiratory: Respiratory: Denies dyspnea Gastrointestinal: Gastrointestinal: Reports abdominal pain, Denies constipation, Denies diarrhea, Denies nausea and Denies vomiting Genitourinary: Genitourinary: Denies genital pain, Denies dysuria, Denies flank pain, Denies scrotal swelling and Denies testicular pain Musculoskeletal: Musculoskeletal: Denies back pain Endocrine: Endocrine: Denies fatigue PMFSH Past Medical History Attestation statement: The following information was validated with the patient. Medical History (Updated 04/22/25 @ 00:01 by Amada Traylor) Anxiety Social History Social History Smoked in Last 30 Days: No Use of substances other than those prescribed or required for medical reasons: No Advance Directives: No Advance Directives Information Provided: Yes Physical Exam ED Vital Signs: Vital Signs - 24 hr 04/20/25 22:40 04/21/25 02:49 Temperature 98.2 F 98.2 F Pulse Rate 80 72 Respiratory Rate 16 18 Blood Pressure 132/65 121/73 Pulse Oximetry 97 99 Oxygen Delivery Method Room Air Room Air BMI result Body Mass Index 27.8 Const Other: Alert well-appearing Orientation/consciousness: patient oriented x3 Resp Effort & Inspection: normal respiratory effort Cardio Other: Normal peripheral perfusion GI Other: Abdomen is soft, nondistended nontender no guarding Skin Other: Warm dry no rash Neuro General: patient oriented x3, gait normal, no focal motor deficits and CN's II-XI intact bilaterally Psych Other: Cooperative Medical Decision Making Medical Decision Making MDM Narrative: 24-year-old male with a history of IBS presents with suprapubic abdominal pain times 40 minutes. Pain described as cramping, denies nausea, vomiting, dysuria, hematuria, testicular pain swelling. Denies back pain or flank pain. Denies diarrhea or constipation. He states he had a bowel movement prior to coming into the emergency room. Problem: IBS History: Per patient I have considered the following differential diagnoses: Urinary tract infection, torsion, renal colic, constipation Plan: Patient is here with a very vague abdominal pain, without any active GI or symptoms. Screening labs were obtained and are completely normal. His abdominal exam is completely benign, obtaining a KUB, he could be constipated. I have independently reviewed the following tests: Labs: No leukocytosis, not anemic, no electrolyte abnormality noted KUB:indings: No pneumoperitoneum or pneumatosis. Mild diffuse fecal retention. No abnormal calcifications. No acute fractures. IMPRESSION: Mild diffuse fecal retention. No small bowel obstruction or free air. Differential Diagnosis Differential Diagnoses: The differential diagnosis associated with the presentation includes See medical decision-making Admission/Observation Consideration of admission/observation: Escalation of care including admission/observation considered Not applicable Lab Data MDM Lab Attestation statement: I reviewed the patient's lab results. 04/20/25 22:52 04/20/25 22:52 Labs: Lab Results 04/20/25 Range/Units 22:52 WBC 9.2 (4.8-10.8) X10*3/uL RBC 4.52 L (4.60-5.80) X10*6/uL Hgb 13.8 L (14.0-18.0) g/dl Hct 38.3 L (42.0-52.0) % MCV 84.7 (80.0-98.0) fL MCH 30.5 (27.0-33.0) pg MCHC 36.0 (31.0-36.0) g/dl RDW 13.0 (11.0-16.0) % Plt Count 252 D (160-400) X10*3/uL MPV 9.0 L (9.4-12.4) fL Immature Gran % (Auto) 0.2 (0.0-0.4) % Neut % (Auto) 65.1 (45-73) % Lymph % (Auto) 28.3 (20-40) % [place] % (Auto) 5.0 (2-11) % Eos % (Auto) 1.0 (0-4) % Baso % (Auto) 0.4 (0-2) % Lymph # (Auto) 2.6 (1.2-4.9) X10*3/uL [place] # (Auto) 0.5 (0.1-1.2) X10*3/uL Eos # (Auto) 0.1 (0.0-0.4) X10*3/uL Baso # (Auto) 0.0 (0.0-0.2) X10*3/uL Abs Immat Gran (auto) 0.02 (0.00-0.03) X10*3/uL Absolute Neuts (auto) 6.0 (2.0-8.3) x10*3/uL Absolute Nucleated RBC 0.000 (0.0-0.012) X10*3/uL Nucleated RBC % (auto) 0.0 (0.0-0.2) /100WBC Sodium 145 (135-145) mmol/L Potassium 3.9 (3.3-5.1) mmol/L Chloride 104 (96-108) mmol/L Carbon Dioxide 29 (22-29) mmol/L Anion Gap 16 (12-20) BUN 11 (9-16) mg/dL Creatinine 0.90 (0.5-1.4) mg/dL Estim Creat Clear Calc 134.7 Estimated GFR > 60 Random Glucose 124 H (60-115) mg/dL Calcium 9.3 D (8.4-10.2) mg/dL Total Bilirubin 0.4 (0.0-1.0) mg/dL Direct Bilirubin 0.1 (0.0-0.5) mg/dL AST 22 (5-37) U/L ALT 33 (0-40) U/L Alkaline Phosphatase 62 (39-117) U/L Total Protein 6.8 (6.5-8.0) g/dL Albumin 4.8 (3.5-5.0) g/dL Lipase 15 (8-78) U/L Radiology Impression Discussion of test interpretation with radiology: I have reviewed the radiologist's reading. Discharge Plan Discharge Clinical Impression: Constipation Patient Disposition: Home, Self-Care Instructions: Constipation (ED) Additional Instructions: All of your screening labs were completely normal, the x-ray revealed that you are constipated. See home care instructions. Use [id number] Colace 1 to 2 times a day. This is a stool softener. Use kmza-nni-tzogwas MiraLax, several times a day until you begin having multiple large volume bowel movements. Continue to follow up with your acoustic warfare analyst as needed. Prescriptions: No Action loperamide [Imodium A-D] 2 mg capsule 2 mg PO Q4H PRN (Reason: loose stool) Qty: 20 0RF Rx Instructions: administer after each loose stool until symptoms controlled; do not exceed 8 mg per 24 hrs hyoscyamine sulfate 0.125 mg tablet 0.125 mg PO QID PRN (Reason: dyspepsia) Qty: 10 0RF hydroxyzine HCl 25 mg tablet 25 mg PO QID PRN (Reason: nausea and vomiting) Qty: 20 0RF Rx Instructions: P.r.n. anxiety Stand Alone Forms: Work/School Release Interventions: ED Discharge Assessment Last Done: 04/21/25 05:55 Discharge Date/Time: 04/21/25 05:56 Print Language: Mauritanian
[2025-04-21 05:54] VITALS: BP 122/80; PULSE 71; RESP 16; TEMP 36.4; O2SAT 99
[2025-04-21 05:55] VITALS: BP 122/80; PULSE 71; RESP 16; TEMP 36.4; O2SAT 99
== END 2025-04-21 05:56 | disposition home or self-care (01) ==
PROVIDERS: Emergency Provider Emergency Medicine; PCP Internal Medicine
DX: K59.00 Constipation, unspecified (principal); R10.9 Unspecified abdominal pain
CPT/HCPCS: 36415; 74018; 80053; 82248; 83690; 85025; 99283; 99284

== ENCOUNTER → 2025-04-21 04:37 | Outpatient (BNV) | payer OTHER, SELFPAY | PROVIDERS: Emergency Provider Emergency Medicine; PCP Internal Medicine; Visit Provider Radiology Vascular & Interventional Radiology | DX: R10.9 Unspecified abdominal pain (principal); K59.00 Constipation, unspecified | CPT/HCPCS: 74018 ==